=== PATIENT | female | born 1975 | race African-American/Black ===

== ENCOUNTER 2017-09-21 10:47 | Emergency (ER) | payer OTHER ==
[2017-09-21 10:52] VITALS: BMI 23.9
[2017-09-21] MEDS ORDERED: SODIUM CHLORIDE 1,000 ML IV STA (11:29)
[2017-09-21] MEDS ORDERED: ONDANSETRON 4 MG/2 ML VIAL IVPUSH ONE (11:29)
--- NOTE | 2017-09-21 11:29 | PDOC ---
History of Present Illness - General Chief Complaint: Pain, Acute Stated Complaint: ABD PAIN Time Seen by Provider: 09/21/17 10:58 - History of Present Illness Initial Comments: 09/21/17 11:40 The patient is a 42 year old female with no significant PMH who presents for evaluation of abdominal pain. The patient reports burning, crampy lower abdominal pain beginning yesterday evening and prompting her presentation to the ED today. She states that she has had similar symptoms in the past with her prior pregnancies, but took a home test which was reportedly negative. She reports that the burning sensation radiates into her back and denies any exacerbating or relieving factors. She endorses some nausea, but otherwise denies fevers, chills, SOB, chest pain, vomiting or changes with bowel movements. She also denies any pain or changes with urination and denies any vaginal discharge or bleeding. Past History - Past Medical History Allergies/Adverse Reactions: Allergies Allergy/AdvReac Type Severity Reaction Status Date / Time No Known Allergies Allergy Verified 09/21/17 10:48 COPD: No - Immunization History Immunization Up to Date: Yes - Suicide/Smoking/Psychosocial Hx Smoking History: Never smoked Review of Systems - Review of Systems Comments:: 09/21/17 11:42 Constitutional: No fevers, chills, fatigue, malaise HEENT: No Rhinorrhea, nasal congestion, visual changes Cardiovascular: No chest pain, syncope, palpitations, lightheadedness Respiratory: No Cough, SOB, Hemoptysis, Gastrointestinal: Lower abdominal pain and nausea. No Vomiting, Constipation, Diarrhea, Melena Genitourinary: No Dysuria, Frequency, Urgency, Hesitancy, Hematuria, Flank pain Musculoskeletal: No Myalgia, arthralgia Skin: No rashes, itching, bruising, pallor Neurologic: No Headache, Dizziness, Numbness, Weakness, or Tingling Psychiatric: No Hallucinations. No SI or HI *Physical Exam - Vital Signs Last Vital Signs Temp Pulse Resp BP Pulse Ox 97.8 F 109 H 20 127/67 100 09/21/17 10:48 09/21/17 10:48 09/21/17 10:48 09/21/17 10:48 09/21/17 10:48 - Physical Exam Comments: 09/21/17 11:43 General Appearance: Nourished. No Apparent Distress HEENT: EOMI, CHERIE. No Pharyngeal Erythema, Tonsillar Exudate, Tonsillar Erythema Neck: No Cervical Lymphadenopathy Respiratory/Chest: Lungs Clear, Normal Breath Sounds. No Crackles, Rales, Rhonchi, Wheezing Cardiovascular: Regular Rhythm, Regular Rate. No Murmur, Gallops, Rubs Gastrointestinal/Abdominal: Normal Bowel Sounds, Soft. Suprapubic tenderness to palpation on physical exam. No Guarding, Rebound, Musculoskeletal: No CVA Tenderness Extremity: Normal Capillary Refill Integumentary: Normal Color, Dry, Warm Neurologic: Fully Oriented, Alert, Normal Mood/Affect, Normal Response, ED Treatment Course - LABORATORY CBC & Chemistry Diagram: 09/21/17 11:50 09/21/17 11:50 Medical Decision Making - Medical Decision Making 09/21/17 11:44 The patient is a 42 year old female with no significant PMH who presents for evaluation of abdominal pain. Differential includes but is not limited to: UTI , Ovarian cyst, ovarian torsion, infectious, metabolic derangement. Given the patient's severe pain, we will obtain a cbc, cmp, lipase, UA, serum preg and pelvic US to evaluate for possible etiologies. We will treat the patient with iv fluids, zofran, and morphine. We will continue to monitor and reassess. 09/21/17 18:09 CBC, cmp, lipase, ua, serum preg are unremarkable. Pelvic US demonstrated an ovarian cyst, but was otherwise normal as read by our radiologist. We obtained an abdomen pelvis CT to further evaluate which was unremarkable besides the ovarian cyst as read by our radiologist. The patient reports significant improvement in her symptoms at this time. We are comfortable discharging the patient home with primary care provider follow up. We discussed the results and the plan with the patient who voiced understanding and is agreeable with the plan. *DC/Admit/Observation/Transfer Diagnosis at time of Disposition: Ovarian cyst Qualifiers: Laterality: unspecified laterality Qualified Code(s): N83.209 - Unspecified ovarian cyst, unspecified side - Discharge Dispostion Disposition: HOME Condition at time of disposition: Good Admit: No - Referrals Referrals: Dean Ruiz MD [Staff Physician] - - Patient Instructions Printed Discharge Instructions: DI for Ovarian Cyst Additional Instructions: Please return to the ER if you experience concerning or worsening symptoms including worsening pain, vomiting, fevers, or difficulty breathing. Your lab results were normal here in the ER. Your CT scan and Ultrasound were normal here in the ER, but did demonstrate an ovarian cyst. Please call to schedule a follow up appointment with your primary care provider within 1-2 days to further discuss management of your symptoms. - Post Discharge Activity
[2017-09-21] MEDS ORDERED: ONDANSETRON 4 MG/2 ML VIAL ONE (11:56)
[2017-09-21] MEDS ORDERED: morphine CARPU-JECT 4 MG/1 ML DISP.SYRIN IVPUSH ONE (11:57)
[2017-09-21 11:59] LABS: BASO % 0.4 % (0-2.0); EOS % 0.8 % (0-4.5); HEMATOCRIT 35.3 % (32.4-45.2); HEMOGLOBIN 11.4 GM/dL (10.7-15.3); LYMPH % 35.9 % (8-40); MCH 24.3 pg (25.7-33.7); MCHC 32.4 g/dl (32.0-36.0); MEAN CELL VOLUME 75.2 fl (80-96); MEAN PLT VOLUME 9.2 fl (7.5-11.1); NEUT % 53.9 % (42.8-82.8); PLATELET COUNT 214 K/MM3 (134-434); RBC 4.69 M/mm3 (3.60-5.2); RDW 15.2 % (11.6-15.6); WHITE BLOOD COUNT 4.7 K/mm3 (4.0-10.0)
[2017-09-21] MEDS ORDERED: MORPHINE SULFATE 10 MG/1 ML *VIAL ONE (12:01)
[2017-09-21 12:56] LABS: ALBUMIN 3.3 g/dl (3.4-5.0); ANION GAP 10 (8-16); BILIRUBIN,TOTAL 0.3 mg/dL (0.2-1.0); BLOOD UREA NITROGEN 11 mg/dL (7-18); CALCIUM 9.2 mg/dL (8.5-10.1); CHLORIDE 109 mmol/L (98-107); CO2 24 mmol/L (21-32); CREATININE 0.5 mg/dL (0.55-1.02); GLUCOSE,RANDOM 81 mg/dL (74-106); LIPASE 121 U/L (73-393); POTASSIUM 4.1 mmol/L (3.5-5.1); SGOT/AST 36 U/L (15-37); SODIUM 143 mmol/L (136-145); TOT PROT 6.4 g/dl (6.4-8.2)
[2017-09-21 13:00] LABS: ALK PHOS 76 U/L (45-117); SGPT/ALT 71 U/L (12-78)
[2017-09-21 14:02] LABS: URINE APPEARANCE CLEAR; URINE BILIRUBIN NEGATIVE (NEGATIVE); URINE BLOOD NEGATIVE (NEGATIVE); URINE COLOR LTYELLOW; URINE GLUCOSE (UA) NEGATIVE (NEGATIVE); URINE KETONE NEGATIVE (NEGATIVE); URINE LEUK ESTERASE NEGATIVE (NEGATIVE); URINE NITRITE NEGATIVE (NEGATIVE); URINE PROTEIN NEGATIVE (NEGATIVE); URINE UROBILINOGEN NEGATIVE mg/dL (0.2-1.0)
--- NOTE | 2017-09-21 16:20 | PDOC ---
Attending Attestation - Resident Resident Name: Alex Felix - ED Attending Attestation I have performed the following: I have examined & evaluated the patient, The case was reviewed & discussed with the resident, I agree w/resident's findings & plan - HPI HPI: 09/21/17 16:17 42-year-old female with history of remote abdominal pains in the past, typically with . She presents now with 2 days of left mid abdominal pain, severe in nature, associated with nausea, no change in urine or bowel function. No vaginal discharge. No fever. - Physicial Exam PE: 09/21/17 16:17 On exam, the patient appears uncomfortable. Head, neck, chest, heart, all normal. Abdomen with notable left para umbilical tenderness without guarding or rebound. No masses. Back without CVA tenderness. - Medical Decision Making 09/21/17 16:19 42-year-old female presents with mid to lower abdominal pain more on the left side. She has tenderness on exam without mass or guarding or rebound. Differential diagnosis is possible pelvic pathology such as ovarian cyst, possible bowel pathology such as diverticulitis, or other. Plan will be to do a serial workup with labs, pelvic ultrasound, and if no pathology is identified , then CT scan.
[2017-09-21 18:33] VITALS: BP 104/56; PULSE 95; TEMP 98.6
== END 2017-09-21 18:44 | disposition home or self-care (01) ==
LOC: JER 10:47
PROC: 3E033NZ Introduction of Analgesics, Hypnotics, Sedatives into Peripheral Vein, Percutaneous Approach (ICD-10-PCS; principal; 2017-09-21)
PROC: 3E033GC Introduction of Other Therapeutic Substance into Peripheral Vein, Percutaneous Approach (ICD-10-PCS; 2017-09-21)
DX: N83.292 Other ovarian cyst, left side (principal); N83.291 Other ovarian cyst, right side
CPT/HCPCS: 36415; 74177-TC; 76830-TC; 80053; 81003; 83690; 84703; 85025; 87086; 99282-25

== ENCOUNTER 2019-03-19 16:35 | Inpatient (IN) | payer OTHER ==
[2019-03-19] MEDS: DEXTROSE 5%-LACTATED RINGERS 1,000 ML IV SCH (17:30)
[2019-03-19 17:51] LABS: BASO % 0.3 % (0-2.0); EOS % 0.8 % (0-4.5); HEMATOCRIT 34.7 % (32.4-45.2); HEMOGLOBIN 11.5 GM/dL (10.7-15.3); LYMPH % 18.2 % (8-40); MCH 24.8 pg (25.7-33.7); MCHC 33.2 g/dl (32.0-36.0); MEAN CELL VOLUME 74.8 fl (80-96); MONO % 4.9 % (3.8-10.2); NEUT % 75.8 % (42.8-82.8); PLATELET COUNT 226 K/MM3 (134-434); RBC 4.65 M/mm3 (3.60-5.2); RDW 15.6 % (11.6-15.6); WHITE BLOOD COUNT 9.9 K/mm3 (4.0-10.0)
[2019-03-19 17:57] VITALS: BMI 31.6
[2019-03-19 18:13] LABS: INR 0.96 (0.83-1.09); PROTHROMBIN TIME (PATIENT) 11.3 SEC (9.7-13.0)
[2019-03-19 18:20] LABS: BLOOD UREA NITROGEN 8.9 mg/dL (7-18); CALCIUM 8.6 mg/dL (8.5-10.1); CREATININE 0.6 mg/dL (0.55-1.3); POTASSIUM 3.9 mmol/L (3.5-5.1)
[2019-03-19] MEDS ORDERED: PROMETHAZINE HCL 25 MG/1 ML VIAL IVPUSH ONE (21:05)
[2019-03-19] MEDS ORDERED: BUTORPHANOL TARTRATE 1 MG/ML VIAL IVPB ONE (21:05)
[2019-03-19] MEDS ORDERED: ELECTROLYTE-148 SOLN 1,000 ML IV SCH (21:15)
[2019-03-19] MEDS ORDERED: DINOPROSTONE 10 MG VAGINAL SUPPOSITORY VG ONE (21:21)
--- NOTE | 2019-03-19 21:27 | HP ---
Past Medical History - Primary Care Physician PCP:: Abby Jimenez - Admission Chief Complaint: ED 03/21/19 EGA 39.5 weeks AMA prev xw3 admitted with hx of macrosomia and fetus 47 XXX for cervidil induction History of Present Illness: ED 03/21/19 EGA 39.5 weeks admitted with hx of macrosomia and fetus 47 XXX for cervidil induction GBS neg BT O positve History Source: Patient Limitations to Obtaining History: No Limitations - Past Medical History ...: 4 ...Para: 3 ...Term: 3 ...: 0 ...Spon : 0 ...Induced : 0 ...Multiple Gestation: 0 ...EDC by Sono: 03/21/19 Endocrine: Yes: Hyperthyroidism, Other (Goiter) - Past Surgical History Past Surgical History: Yes: None Hx Myomectomy: No Hx Transabdominal Cerclage: No - Smoking History Smoking history: Never smoked Have you smoked in the past 12 months: No - Alcohol/Substance Use Hx Alcohol Use: No History of Substance Use: reports: None - Social History Usual Living Arrangement: Yes: With Spouse History of Recent Travel: No Home Medications - Allergies Allergies/Adverse Reactions: Allergies Allergy/AdvReac Type Severity Reaction Status Date / Time No Known Allergies Allergy Verified 03/19/19 18:12 - Home Medications Home Medications: Ambulatory Orders Methimazole 5 mg PO DAILY 03/19/19 Methimazole 10 mg PO BID 03/19/19 Review of Systems - Review of Systems Constitutional: reports: No Symptoms Eyes: reports: No Symptoms HENT: reports: No Symptoms Neck: reports: No Symptoms Cardiovascular: reports: No Symptoms Respiratory: reports: No Symptoms Gastrointestinal: reports: No Symptoms Genitourinary: reports: No Symptoms Breasts: reports: No Symptoms Reported Musculoskeletal: reports: No Symptoms Integumentary: reports: No Symptoms Neurological: reports: No Symptoms Endocrine: reports: No Symptoms Hematology/Lymphatic: reports: No Symptoms Psychiatric: reports: No Symptoms Physical Exam - Maternity Vital Signs: Vital Signs Temperature 97.7 F 03/19/19 18:00 Pulse Rate 90 03/19/19 20:00 Respiratory Rate 18 03/19/19 20:00 Blood Pressure 125/68 03/19/19 20:00 O2 Sat by Pulse Oximetry (%) Constitutional: Yes: Well Nourished, No Distress HENT: Yes: WNL Cardiovascular: Yes: WNL Lungs: Clear to auscultation Breast(s): Yes: WNL - Abdominal Exam/OB Fundal Height: 40 Number of Fetuses: Single Presentation: Vertex Contractions: No Monitor Mode: External Heart Rate Location: [facility] Category: I Decelerations: None - Vaginal Exam/OB Dilatation (cm): 1-2 Effacement (%): 80 Amniotic Membrane Status: Intact Presentation: Vertex/Position Station: -2 - Physical Exam Psychiatric: Yes: WNL, Alert, Oriented - Labs Lab Results: CBC, BMP 03/19/19 17:20 03/19/19 17:20 Problem List - Problems (1) 39 weeks gestation of Code(s): Z3A.39 - 39 WEEKS GESTATION OF (2) Macrosomia Code(s): P08.0 - EXCEPTIONALLY LARGE BABY Assessment/Plan AMA Cat 1 GBS neg Hx of macrosomia with previous delivies (10lb x 2 8lb) Cervidil induction Hyperthryoid plan cervidil continue present management
[2019-03-20] MEDS ORDERED: OXYTOCIN 30 UNITS in 0.9% NS 30 UNIT/500 ML INFUS.BAG IVPB SCH (11:00)
--- NOTE | 2019-03-20 11:12 | PN ---
Ante-Partal Exam - Subjective Subjective: Pt feeling occasional contractions. Vital Signs: Vital Signs Temperature 98.4 F 03/20/19 10:00 Pulse Rate 68 03/20/19 10:00 Respiratory Rate 18 03/20/19 10:00 Blood Pressure 124/75 03/20/19 10:00 O2 Sat by Pulse Oximetry (%) Bleeding: No Headache: No Visual changes: No Right upper quadrant pain: No - Contractions Contractions: Yes Regularity: Irregular Intensity: Mild/Mod - Exam during Labor Heart Rate: 135 Variability: Moderate Category: I Monitor Accelerations: Present Monitor Decelerations: Late (isolated) Exam: Vaginal Dilatation (cm): 1 Effacement (%): 50 Amniotic Membrane Status: Intact Presentation: Vertex Station: -2 - Assessment/Plan Assessment/Plan: to start pitocin
[2019-03-20] MEDS ORDERED: OXYTOCIN 30 UNITS in 0.9% NS 30 UNIT/500 ML INFUS.BAG IVPB ONE (11:44)
[2019-03-20] MEDS: METHIMAZOLE 5 MG TABLET (FP) PO SCH (12:30)
[2019-03-20] MEDS: DEXTROSE 5%-LACTATED RINGERS 1,000 ML IV SCH ×2 (13:00→19:05)
[2019-03-20] MEDS ORDERED: BUTORPHANOL TARTRATE 1 MG/ML VIAL ONE ×3 (14:45→21:34)
[2019-03-20] MEDS ORDERED: PROMETHAZINE HCL 25 MG/1 ML VIAL ONE ×2 (14:45→21:34)
--- NOTE | 2019-03-20 20:26 | PN ---
Ante-Partal Exam - Subjective Subjective: pt feeling contractions Vital Signs: Vital Signs Temperature 98.4 F 03/20/19 16:49 Pulse Rate 74 03/20/19 16:49 Respiratory Rate 16 03/20/19 16:49 Blood Pressure 139/85 03/20/19 16:49 O2 Sat by Pulse Oximetry (%) Bleeding: Yes Headache: No Visual changes: No Right upper quadrant pain: No - Contractions Contractions: Yes Regularity: Regular Intensity: Moderate - Exam during Labor Variability: Moderate Category: I Monitor Accelerations: Present Monitor Decelerations: None Exam: Vaginal Dilatation (cm): 2 Effacement (%): 50 Amniotic Membrane Status: Ruptured (AROM for clear fluid) Presentation: Vertex Station: -2 - Assessment/Plan Assessment/Plan: Continue pitocin/active management IV pain meds as needed continue active management
[2019-03-20] MEDS ORDERED: PROMETHAZINE HCL 25 MG/1 ML VIAL IVPUSH ONE (22:20)
[2019-03-20] MEDS ORDERED: BUTORPHANOL TARTRATE 1 MG/ML VIAL IVPB ONE (22:20)
[2019-03-21] MEDS ORDERED: OXYTOCIN 20 UNITS in 0.9% NS 20 UNIT/1,000 ML INFUS.BAG IV ONE (01:18)
[2019-03-21] MEDS ORDERED: LIDOCAINE HCL 1% PRESERVATIVE FREE - 30ML VIAL ONE (01:33)
[2019-03-21] MEDS ORDERED: BENZOCAINE 20% 57 GM BOTTLE TP PRN (01:48)
[2019-03-21] MEDS ORDERED: BISACODYL 10 MG SUPP.RECT RC PRN (01:48)
[2019-03-21] MEDS ORDERED: METHYLERGONOVINE MALEATE 0.2 MG/1 ML AMP IM PRN (01:48)
[2019-03-21] MEDS ORDERED: WITCH HAZEL 50% (TUCKS) 40 PAD/JAR PAD TP PRN (01:48)
[2019-03-21] MEDS ORDERED: BENZOCAINE 28 GM HEMORRHOIDAL OINTMENT TP PRN (01:48)
--- NOTE | 2019-03-21 01:48 | PN ---
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
[2019-03-21] MEDS ORDERED: OXYTOCIN 20 UNITS in 0.9% NS 20 UNIT/1,000 ML INFUS.BAG IV SCH (02:00)
[2019-03-21] MEDS: METHIMAZOLE 10 MG TABLET (FP) PO SCH ×3 (07:25→21:08)
[2019-03-21] MEDS: PRENATAL VITAMINS W/ FOLIC ACID TABLET (FP) PO SCH (09:49)
[2019-03-21] MEDS ORDERED: DIPHTH,PERTUSS(ACELL),TET 0.5 ML DISP.SYRIN IM ONE (10:00)
[2019-03-21] MEDS: METHIMAZOLE 5 MG TABLET (FP) PO SCH (11:52)
[2019-03-21] MEDS: ACETAMINOPHEN 325 MG TABLET (FP) PO PRN (17:10)
[2019-03-21] MEDS: IBUPROFEN 600 MG TABLET (FP) PO PRN (17:10)
[2019-03-22] MEDS: METHIMAZOLE 10 MG TABLET (FP) PO SCH ×2 (06:32→21:37)
--- NOTE | 2019-03-22 06:59 | PN ---
Post Progress Note - Subjective Subjective: 44 yo Para 4 status post vaginal delivery, seen and evaluated. Doing well. Post Day: 1 Type of Delivery: Vital Signs: Vital Signs Temperature 98 F 03/22/19 01:45 Pulse Rate 73 03/22/19 01:45 Respiratory Rate 18 03/22/19 01:45 Blood Pressure 131/77 03/22/19 01:45 O2 Sat by Pulse Oximetry (%) 99 03/21/19 02:45 Breast Exam: Yes: Soft Uterus: Yes: Fundus Firm Abdomen/GI: Yes: Abdomen soft, Tolerating PO Lochia: Yes: Rubra Lochia, amount: Moderate Extremities: Yes: Calves non-tender Activity: Ambulating - Labs Labs: CBC WBC 9.9 K/mm3 (4.0-10.0) 03/19/19 17:20 RBC 4.65 M/mm3 (3.60-5.2) 03/19/19 17:20 Hgb 11.5 GM/dL (10.7-15.3) 03/19/19 17:20 Hct 34.7 % (32.4-45.2) 03/19/19 17:20 MCV 74.8 fl (80-96) L 03/19/19 17:20 MCH 24.8 pg (25.7-33.7) L 03/19/19 17:20 MCHC 33.2 g/dl (32.0-36.0) 03/19/19 17:20 RDW 15.6 % (11.6-15.6) 03/19/19 17:20 Plt Count 226 K/MM3 (134-434) 03/19/19 17:20 MPV 11.0 fl (7.5-11.1) D 03/19/19 17:20 Absolute Neuts (auto) 7.5 K/mm3 (1.5-8.0) 03/19/19 17:20 Neutrophils % 75.8 % (42.8-82.8) D 03/19/19 17:20 Lymphocytes % 18.2 % (8-40) D 03/19/19 17:20 Monocytes % 4.9 % (3.8-10.2) 03/19/19 17:20 Eosinophils % 0.8 % (0-4.5) 03/19/19 17:20 Basophils % 0.3 % (0-2.0) 03/19/19 17:20 Nucleated RBC % 0 % (0-0) 03/19/19 17:20 Problem List - Problems (1) Status post vaginal delivery Code(s): [id number] - Assessment/Plan Status post vaginal delivery Stable Continue routine care
[2019-03-22 07:05] LABS: BASO % 0.3 % (0-2.0); EOS % 1.1 % (0-4.5); HEMATOCRIT 33.8 % (32.4-45.2); HEMOGLOBIN 10.6 GM/dL (10.7-15.3); LYMPH % 25.6 % (8-40); MCH 23.7 pg (25.7-33.7); MCHC 31.2 g/dl (32.0-36.0); MEAN CELL VOLUME 75.9 fl (80-96); MEAN PLT VOLUME 10.4 fl (7.5-11.1); MONO % 4.9 % (3.8-10.2); NEUT % 68.1 % (42.8-82.8); PLATELET COUNT 168 K/MM3 (134-434); RBC 4.46 M/mm3 (3.60-5.2); RDW 15.9 % (11.6-15.6); WHITE BLOOD COUNT 12.3 K/mm3 (4.0-10.0)
[2019-03-22] MEDS: PRENATAL VITAMINS W/ FOLIC ACID TABLET (FP) PO SCH (11:08)
[2019-03-22] MEDS: IBUPROFEN 600 MG TABLET (FP) PO PRN ×2 (11:27→21:36)
[2019-03-22] MEDS: ACETAMINOPHEN 325 MG TABLET (FP) PO PRN ×2 (11:29→21:37)
[2019-03-22] MEDS: METHIMAZOLE 5 MG TABLET (FP) PO SCH (12:00)
[2019-03-22] MEDS: DEXTROSE 5%-LACTATED RINGERS 1,000 ML IV SCH (18:23)
[2019-03-22] MEDS ORDERED: SENNOSIDES/DOCUSATE COMBO (SENNA PLUS) TABLET (UD) PO PRN (22:00)
[2019-03-23] MEDS: METHIMAZOLE 10 MG TABLET (FP) PO SCH (07:40)
[2019-03-23 09:33] VITALS: BP 137/78; PULSE 78; TEMP 97.9
[2019-03-23] MEDS: PRENATAL VITAMINS W/ FOLIC ACID TABLET (FP) PO SCH (09:50)
--- NOTE | 2019-03-23 09:53 | DS ---
Physical Exam-MISSION PLANNER Vital Signs: Vital Signs Temperature 97.9 F 03/23/19 09:28 Pulse Rate 78 03/23/19 09:28 Respiratory Rate 18 03/23/19 09:28 Blood Pressure 137/78 03/23/19 09:28 O2 Sat by Pulse Oximetry (%) 99 03/21/19 02:45 Constitutional: Yes: Well Nourished, No Distress Cardiovascular: Yes: WNL Respiratory: Yes: WNL Gastrointestinal: Yes: WNL, Soft ....Post : Yes: Uterus firm, Uterus non-tender Breast(s): Yes: WNL Musculoskeletal: Yes: WNL Extremities: Yes: WNL Edema: No Labs: CBC, BMP 03/22/19 06:42 03/19/19 17:20 Delivery - Delivery Vaginal Delivery: No Problems Type of Anesthesia: Local Episiotomy/Laceration: 1st degree EBL (cc): 250 Delivery, Single - Stages of Labor Date 1st Stage Initiatied: 03/20/19 Time 1st Stage Initiated: 15:00 Date 2nd Stage Initiated: 03/21/19 Time 2nd Stage Initiated: 01:20 Date of Delivery: 03/21/19 Time of Delivery: 01:28 Time Placenta Delivered: 01:32 - Condition of Compliance Project Manager/Charge Rn Present: No Infant Gender: Female Weight: 5 lb 15 oz Position: Right, OA Total Hours ROM (Hrs/Mins): 5 hours 30 minutes - 1 Minute Total Score: 9 5 Minutes Total Score: 9 - Shock Feeding Plan Initial Plan: Elected not to breastfeed exclusively throughout hospitalization Discharge Summary Reason For Visit: LABOR INDUCTION Current Active Problems 39 weeks gestation of (Acute) Macrosomia (Acute) Status post vaginal delivery (Acute) Procedures: Principal: Normal vaginal delivery Condition: Good - Instructions Diet, Activity, Other Instructions: Physical activity Resume your normal everyday activity as tolerated no heavy lifting or exercise until seen by your surgeon. You may walk unlimited todd of and climb stairs. You may resume driving the car when you feel safe and comfortable behind the wheel. No sexual activity as instructed. Wound care If you have a bandage, leave it on, and keep dry for 48-72 hours. After that time discard the outer bandage. If they are tapes on the skin under the out of bandage leave them in place. They will peel off in the next 7 to 10 days. Do Not Peel them off. You may shower the day after surgery. If there are tapes present on the skin, you may shower over them. Diet There are no dietary restrictions. Eat healthy, high-fiber foods. Drink 6 to 8 glasses of liquid each day. This will assist in keeping your bowels are regular. Pain management You may take Tylenol or acetaminophen or Ibuprofen (for example, Motrin, Advil etc.) from my pain prescription medication is ordered should be taken as prescribed for moderate to severe pain. Call MD for any of the following: Severe pain not relieved by medication Fever of 101 or higher Excessive bleeding or drainage on dressing Inability to urinate Disposition: HOME - Home Medications Comprehensive Discharge Medication List: Ambulatory Orders Methimazole 5 mg PO DAILY 03/19/19 Methimazole 10 mg PO BID 03/19/19 Ibuprofen [Motrin -] 600 mg PO QID #28 tablet 03/23/19
[2019-03-23] MEDS: METHIMAZOLE 5 MG TABLET (FP) PO SCH (12:43)
== END 2019-03-23 13:15 | disposition home or self-care (01) | DRG 560 ==
LOC: JLDR 16:35 → J3W 03-20 02:17 → JLDR 03-20 10:10 → J3W 03-21 03:11
PROVIDERS: ADMIT Obstetrics & Gynecology; ATTEND Obstetrics & Gynecology
PROC: 0HQ9XZZ Repair Perineum Skin, External Approach (ICD-10-PCS; principal; 2019-03-21)
PROC: 10E0XZZ Delivery of Products of Conception, External Approach (ICD-10-PCS; 2019-03-21)
DX: O36.63X0 Maternal care for excessive fetal growth, third trimester, not applicable or unspecified (principal); O99.284 Endocrine, nutritional and metabolic diseases complicating childbirth; E05.90 Thyrotoxicosis, unspecified without thyrotoxic crisis or storm; O70.0 First degree perineal laceration during delivery; Z3A.39 39 weeks gestation of pregnancy; Z37.0 Single live birth
CPT/HCPCS: 36415; 59409; 80048; 85025; 85610; 85730; 86593; 86850; 86900; 86901; 90715